=== PATIENT | male | born 1945 | race Caucasian/White ===

== ENCOUNTER 2017-10-14 13:32 | Emergency (ER) | payer MEDICARE, OTHER, SELFPAY ==
--- NOTE | 2017-10-14 | CT_ITS ---
CT cervical spine wo con INDICATION: ITS.REASON: NECK PAIN ON LEFT SIDE COMPARISON: None TECHNIQUE: Axial images are obtained without contrast. Sagittal and coronal reformatted images are reviewed as well. FINDINGS: There is normal alignment. No acute fracture or dislocation. C2-C3: Mild left-sided uncovertebral hypertrophy with mild foraminal narrowing. C3-C4: Left-sided uncovertebral hypertrophy with moderate to severe left-sided foraminal narrowing. C4-C5: Unremarkable. C5-C6: Prominent facet hypertrophic changes bilaterally with scattered lucent areas within the facets probably related to subcortical cystic changes. C6-C7: Mild degenerative disc disease. C7-T1: Unremarkable. There is coarse calcification in the lower pole the right lobe of the thyroid gland. Lung apices are clear. There is nonspecific small areas of decreased attenuation within the C2 vertebral body both right and left aspect at 3 to 4 mm and within the left lamina of C2 4 mm. Decreased focal density involves the left inferior facet of C4 at 5 mm. IMPRESSION: 1. Cervical spondylosis as described above. Described in detail above. Please see above for detail. 2. Moderate to severe left-sided foraminal narrowing at C3-C4. 3. Scattered areas of decreased attenuation involving the vertebra possibly all related to areas of osteopenia. Cannot exclude early lytic lesions. Consider outpatient bone scan for further evaluation.
[2017-10-14 13:33] VITALS: BP 178/98; PULSE 87; PULSE 98; RESP 16; TEMP 37; O2SAT 98; O2SAT 99; BMI 24.4; BMI 25.1
--- NOTE | 2017-10-14 14:36 | HMH.EDGENADL ---
ED Disposition Clinical Impression: Cervical arthritis with myelopathy Disposition: Home, Self-Care Condition on Discharge: Fair Instructions: DI for Acute Pain -- Adult Additional Instructions: Sleep on a flat, hard surface and alternate Ice and heat and use whichever helps the most. Follow up with PCP to get Physical Therapy and possibly a Bone Scan or an MRI to evaluate further Prescriptions: Diclofenac Potassium [Diclofenac 50mg Tab] 50 mg PO BID #60 tab Hydrocodone/Acetaminophen [Lorcet 5-325 mg Tablet] 1 each PO Q4H PRN 3 Days #18 tab PRN Reason: Severe Pain Methocarbamol [Robaxin 750mg Tab] 750 mg PO BID #60 tab Referrals: Titi Aquino MD [Primary Care Provider] - Time of Disposition: 16:34 - Critical Care Critical Care Time: No Attestation: On 10/14/17, the high probability of a clinically significant, sudden or life threatening deterioration of the following system(s) required my full and direct attention, intervention and personal management. The time I documented below is in addition to time spent performing reported procedures but includes the following listed in this critical care notation. Medical Decision Making - Medical Records Medical records reviewed: Yes: I reviewed the patient's medical records. Vital Signs: 10/14/17 13:33 Temperature 98.6 F Temperature Source Oral Pulse Rate [Right Brachial] 87 Respiratory Rate 16 Blood Pressure [Right Arm] 178/98 Blood Pressure Mean [Right Arm] 124 Blood Pressure Source [Right Arm] Automatic Cuff Blood Pressure Position [Right Arm] Sitting 02 Sat by Pulse Oximetry 98 Oxygen Delivery Method Room Air Orders (Tests/Meds): ED MEDICATIONS Discontinued Medications Generic Name Dose Route Start Last Admin Trade Name Freq PRN Reason Stop Dose Admin Morphine Sulfate 4 mg 10/14/17 16:19 Morphine 4mg/Ml Syringe IM 10/14/17 16:20 ONCE ONE Ondansetron HCl 4 mg 10/14/17 16:19 Zofran 4mg/2ml Vial IM 10/14/17 16:20 ONCE ONE ORDERS Category Date Time Status CT scan request [CT Request Scan] Stat Cat Scan 10/14/17 14:45 Taken - CT Data CT Scan: C-Spine Time Received: 16:[address] Reviewed: Yes: I have reviewed the patient's CT results, I discussed the CT results w/the radiologist, I have viewed the radiologist's interpretation Findings Narrative: Severe foraminal stenosis at C3-4 and ? osteopenia vs Lytic areas - Martir Inquiry Pt receiving controlled substance: Yes Martir was queried for this patient: Yes Reference #:: [id number] Risks and benefits of using a controlled substance: were discussed with pt by me General Adult HPI - General Stated complaint: stiff neck Mode of Arrival: Ambulatory Source of Information: Patient Limitations: No Limitations Description of Symptoms (Recalled from ER Triage Doc. by RN): Pt advises he woke up yesterday wirh a pain in his left shoulder and neck. Advises he feels like he may have slept on it wrong. Today he complains of pain in the neck - Related Data Previous Rx's Medication Instructions Recorded Diclofenac Potassium [Diclofenac 50 mg PO BID #60 tab 10/14/17 50mg Tab] Hydrocodone/Acetaminophen [Lorcet 1 each PO Q4H PRN 3 Days #18 tab 10/14/17 5-325 mg Tablet] Methocarbamol [Robaxin 750mg Tab] 750 mg PO BID #60 tab 10/14/17 Allergies Allergy/AdvReac Type Severity Reaction Status Date / Time No Known Allergies Allergy Verified 10/14/17 13:43 ROS Obtained: Yes All systems reviewed & no additional complaints Physical Exam - General General appearance: alert - Head Head exam: atraumatic - Respiratory Respiratory exam: Present: normal lung sounds bilaterally - Cardiovascular Cardiovascular exam: Present: regular rate, normal rhythm - Neurological Exam Neurological exam: Present: alert, oriented X3
--- NOTE | 2017-10-14 14:47 | ED_ITS ---
ED Disposition Clinical Impression: Cervical arthritis with myelopathy Disposition: Home, Self-Care Condition on Discharge: Fair Instructions: DI for Acute Pain -- Adult Additional Instructions: Sleep on a flat, hard surface and alternate Ice and heat and use whichever helps the most. Follow up with PCP to get Physical Therapy and possibly a Bone Scan or an MRI to evaluate further Prescriptions: Diclofenac Potassium [Diclofenac 50mg Tab] 50 mg PO BID #60 tab Hydrocodone/Acetaminophen [Lorcet 5-325 mg Tablet] 1 each PO Q4H PRN 3 Days #18 tab PRN Reason: Severe Pain Methocarbamol [Robaxin 750mg Tab] 750 mg PO BID #60 tab Referrals: Titi Aquino MD [Primary Care Provider] - Time of Disposition: 16:34 - Critical Care Critical Care Time: No Attestation: On 10/14/17, the high probability of a clinically significant, sudden or life threatening deterioration of the following system(s) required my full and direct attention, intervention and personal management. The time I documented below is in addition to time spent performing reported procedures but includes the following listed in this critical care notation. Medical Decision Making - Medical Records Medical records reviewed: Yes: I reviewed the patient's medical records. Vital Signs: 10/14/17 13:33 Temperature 98.6 F Temperature Source Oral Pulse Rate [Right Brachial] 87 Respiratory Rate 16 Blood Pressure [Right Arm] 178/98 Blood Pressure Mean [Right Arm] 124 Blood Pressure Source [Right Arm] Automatic Cuff Blood Pressure Position [Right Arm] Sitting 02 Sat by Pulse Oximetry 98 Oxygen Delivery Method Room Air Orders (Tests/Meds): ED MEDICATIONS Discontinued Medications Generic Name Dose Route Start Last Admin Trade Name Freq PRN Reason Stop Dose Admin Morphine Sulfate 4 mg 10/14/17 16:19 Morphine 4mg/Ml Syringe IM 10/14/17 16:20 ONCE ONE Ondansetron HCl 4 mg 10/14/17 16:19 Zofran 4mg/2ml Vial IM 10/14/17 16:20 ONCE ONE ORDERS Category Date Time Status CT scan request [CT Request Scan] Stat Cat Scan 10/14/17 14:45 Taken - CT Data CT Scan: C-Spine Time Received: 16:[address] Reviewed: Yes: I have reviewed the patient's CT results, I discussed the CT results w/the radiologist, I have viewed the radiologist's interpretation Findings Narrative: Severe foraminal stenosis at C3-4 and ? osteopenia vs Lytic areas - Martir Inquiry Pt receiving controlled substance: Yes Martir was queried for this patient: Yes Reference #:: [id number] Risks and benefits of using a controlled substance: were discussed with pt by me General Adult HPI - General Stated complaint: stiff neck Mode of Arrival: Ambulatory Source of Information: Patient Limitations: No Limitations Description of Symptoms (Recalled from ER Triage Doc. by RN): Pt advises he woke up yesterday wirh a pain in his left shoulder and neck. Advises he feels like he may have slept on it wrong. Today he complains of pain in the neck - Related Data Previous Rx's Medication Instructions Recorded Diclofenac Potassium [Diclofenac 50 mg PO BID #60 tab 10/14/17 50mg Tab] Hydrocodone/Acetaminophen [Lorcet 1 each PO Q4H PRN 3 Days #18 tab 10/14/17 5-325 mg Tablet] Methocarbamol [Robaxin 7
[2017-10-14 16:48] VITALS: BP 132/86; PULSE 78; RESP 18; TEMP 36.7; O2SAT 98
== END 2017-10-14 16:51 | disposition home or self-care (01) ==
LOC: ER 13:43 → UTC 13:44 → ER 14:32 → UTC 14:33 → ER 14:33
PROVIDERS: Emergency Provider General Practice; PCP Internal Medicine Adolescent Medicine
DX: M47.12 Other spondylosis with myelopathy, cervical region (principal)
CPT/HCPCS: 72125; 96372; 99283; J2405

== ENCOUNTER → 2017-10-15 11:23 | Outpatient (CLI) | payer MEDICARE, OTHER, SELFPAY ==
[2017-10-15 12:10] LABS: Basophils % 0.4 % (0.1-2.0); Eosinophils % 0.4 % (0.1-12.0); Hematocrit 38.9 % (42.0-52.0); Hemoglobin 13.2 g/dL (14.1-18.0); Lymphocytes # 1.7 K/mm3 (0.7-4.5); Lymphocytes % 17.8 K/mm3 (10-50); Mean Corpuscular HGB Conc 33.9 g/dL (31.8-35.4); Mean Corpuscular Hemoglobin 31.6 pg (27.0-31.2); Mean Corpuscular Volume 93.5 fl (80-94); Mean Platelet Volume 8.1 fl (7.4-10.4); Monocytes # 0.8 K/mm3 (0.1-1.0); Monocytes % 8.5 % (1.7-9.3); Platelet Count 195 K/mm3 (142-424); Red Blood Count 4.16 M/mm3 (4.60-6.20); Red Cell Distribution Width 12.5 % (11.5-17.5); White Blood Count 9.6 K/mm3 (4.8-10.8)
[2017-10-15 14:41] LABS: Alanine Aminotransferase 27 U/L (12-78); Albumin Level 4.1 gm/dL (3.4-5.0); Albumin/Globulin Ratio 1.4 (1.1-1.8); Alkaline Phosphatase 82 U/L (46-116); Anion Gap 12.5 mEq/L (5-15); Aspartate Amino Transferase 25 U/L (15-37); Bilirubin,Total 0.9 mg/dL (0.2-1.0); Blood Urea Nitrogen 16 mg/dL (7-18); Calcium 8.7 mg/dL (8.5-10.1); Carbon Dioxide 28 mmol/L (21.0-32.0); Chloride 103 mmol/L (98-107); Creatinine,Serum 1.07 mg/dL (0.70-1.30); Estimated Glomerular Filt Rate 69 ml/min (>60); GFR (African American) 83 ML/MIN (>60); Globulin 2.9 gm/dl (1.3-3.2); Glucose 96 mg/dL (74-106); Potassium 4.5 mmoL/L (3.5-5.1); Prostate Specific Ag Screen 1.8 ng/mL (0.0-4.0); Sodium 139 mmol/L (136-145)
[2017-10-16 18:32] LABS: Vitamin D 25 Hydroxy 45.8 ng/mL (30.0-100.0)
== END ==
PROVIDERS: PCP Internal Medicine Adolescent Medicine; Visit Provider Internal Medicine Adolescent Medicine
DX: M47.22 Other spondylosis with radiculopathy, cervical region (principal); M89.8X9 Other specified disorders of bone, unspecified site; Z12.5 Encounter for screening for malignant neoplasm of prostate
CPT/HCPCS: 36415; 80053; 82652; 85025; G0103

== ENCOUNTER → 2017-10-19 13:46 | Outpatient (CLI) | payer MEDICARE, OTHER, SELFPAY ==
--- NOTE | 2017-10-19 13:58 | XR_ITS ---
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 This is considered normal according to the World Health Organization criteria. Fracture risk is low. Recommend follow up exam October 09, 2019.. L1 L4 density has a T score of 0.9 which is normal IMPRESSION: Normal bone density
--- NOTE | 2017-10-19 14:16 | MR_ITS ---
MR cervical spine wo con HISTORY: Neck pain, RADICULOPATHY ITS.REASON: OSTEOARTHRITIS OF SPINE WITH RADICULOPATHY ORDERING PHYSICIAN: Titi Aquino MD PATIENT AGE: 71 years COMPARISON: CT scan of 10/14/2017 TECHNIQUE: Standard multiplanar multiecho sequences are performed without contrast. 3-D MIP and myelographic images are also rendered and reviewed FINDINGS: The craniocervical junction has an unremarkable appearance. C2-C3: Mild left foraminal narrowing from uncovertebral hypertrophy. C3-C4: Severe left-sided foraminal narrowing from uncovertebral hypertrophy. Left paracentral disc osteophyte complex causes left lateral recess narrowing abutting the left aspect of the cord anteriorly. C4-C5: Degenerative disc disease with facet and uncovertebral hypertrophy on the left causing moderate to severe foraminal narrowing. There is mild narrowing of the canal at 10 mm with very minimal flattening of the cord anteriorly C5-C6: Unremarkable. C6-C7: Degenerative disc disease with minimal bulging disc and mild narrowing of the canal C7-T1: Unremarkable. There were small lucent areas throughout the C-spine seen on the CT scan. These do not show signal alteration on MRI may be due to areas of osteopenia/osteoporosis. IMPRESSION: 1. Cervical spondylosis with bulging disc and uncovertebral and facet hypertrophy at multiple levels. Please see above for detailed description at each level. 2. Severe left-sided foraminal narrowing at C3-C4 from uncovertebral hypertrophy. Left paracentral disc osteophyte complex causes left lateral recess narrowing abutting the left aspect of the cord anteriorly. 3. Degenerative disc disease C4-C5 with facet and uncovertebral hypertrophy on the left causing moderate to severe foraminal narrowing. There is mild narrowing of the canal at 10 mm with very minimal flattening of the cord anteriorly 4. No extruded herniated disc evident
== END ==
PROVIDERS: PCP Internal Medicine Adolescent Medicine; Visit Provider Internal Medicine Adolescent Medicine
DX: M81.0 Age-related osteoporosis without current pathological fracture (principal); M47.22 Other spondylosis with radiculopathy, cervical region; Z13.820 Encounter for screening for osteoporosis
CPT/HCPCS: 72141; 76376; 77080

== ENCOUNTER → 2018-04-22 11:07 | Outpatient (REF) | payer MEDICARE, OTHER, SELFPAY ==
[2018-04-29 17:25] LABS: Calprotectin, Fecal 37 ug/g (0-120)
== END ==
LOC: LAB 11:07
PROVIDERS: Visit Provider Physician Assistant
DX: K51.90 Ulcerative colitis, unspecified, without complications (principal)
CPT/HCPCS: 83993

== ENCOUNTER → 2019-02-27 11:16 | Outpatient (CLI) | payer MEDICARE, BC, SELFPAY ==
[2019-02-27 13:31] LABS: Alanine Aminotransferase 31 U/L (12-78); Albumin Level 4.2 gm/dL (3.4-5.0); Albumin/Globulin Ratio 1.5 (1.1-1.8); Alkaline Phosphatase 80 U/L (46-116); Anion Gap 14.6 mEq/L (5-15); Aspartate Amino Transferase 25 U/L (15-37); Bilirubin,Total 0.8 mg/dL (0.2-1.0); Blood Urea Nitrogen 12 mg/dL (7-18); Carbon Dioxide 29 mmol/L (21.0-32.0); Chloride 104 mmol/L (98-107); Chol/HDL Ratio 2.5 (1-3.5); Cholesterol 164 mg/dL (140-200); Creatinine,Serum 0.98 mg/dL (0.70-1.30); Estimated Glomerular Filt Rate 75 ml/min (>60); GFR (African American) 91 ML/MIN (>60); Globulin 2.8 gm/dl (1.3-3.2); Glucose 86 mg/dL (74-106); HDL Cholesterol 66 mg/dL (27-67); LDL Cholesterol 67 mg/dL (0-130); Potassium 4.6 mmoL/L (3.5-5.1); Sodium 143 mmol/L (136-145); Triglycerides 154 mg/dL (30-200); VLDL Cholesterol 31 mg/dL (0-40)
== END ==
PROVIDERS: Visit Provider Nurse Practitioner Family
DX: I10 Essential (primary) hypertension (principal); E78.2 Mixed hyperlipidemia
CPT/HCPCS: 36415; 80053; 80061

== ENCOUNTER → 2019-09-28 13:32 | Outpatient (CLI) | payer MEDICARE, BC, SELFPAY ==
[2019-10-01 17:59] LABS: Calprotectin, Fecal 16 ug/g (0-120)
== END ==
PROVIDERS: Visit Provider Physician Assistant
DX: K51.90 Ulcerative colitis, unspecified, without complications (principal)
CPT/HCPCS: 36415; 83993

== ENCOUNTER → 2021-01-24 08:13 | Outpatient (CLI) | payer MEDICARE, BC, SELFPAY ==
[2021-01-24 08:59] LABS: Basophils % 0.6 % (0.1-2.0); Eosinophils # 0.2 K/mm3 (0.0-0.4); Eosinophils % 2.7 % (0.1-12.0); Hematocrit 38.6 % (42.0-52.0); Hemoglobin 13.4 g/dL (14.1-18.0); Lymphocytes % 31.5 % (10-50); Mean Corpuscular HGB Conc 34.7 g/dL (31.8-35.4); Mean Corpuscular Hemoglobin 32.5 pg (27.0-31.2); Mean Corpuscular Volume 93.7 fl (80-94); Mean Platelet Volume 8.4 fl (7.4-10.4); Monocytes # 0.5 K/mm3 (0.1-1.0); Monocytes % 8.4 % (1.7-9.3); Neutrophils # 3.7 K/mm3 (1.8-7.8); Neutrophils % 56.8 % (37.0-80.0); Platelet Count 229 K/mm3 (142-424); Red Blood Count 4.12 M/mm3 (4.60-6.20); Red Cell Distribution Width 13.1 % (11.5-17.5); White Blood Count 6.5 K/mm3 (4.8-10.8)
[2021-01-24 09:34] LABS: Chloride 103 mmol/L (98-107); Potassium 3.9 mmoL/L (3.5-5.1); Sodium 138 mmol/L (136-145)
[2021-01-24 09:36] LABS: Alanine Aminotransferase 30 U/L (12-78); Aspartate Amino Transferase 52 U/L (17-59); Blood Urea Nitrogen 15 mg/dl (9-20); Estimated Glomerular Filt Rate 73 ml/min (>60); GFR (African American) 89 ML/MIN (>60)
[2021-01-24 09:37] LABS: Albumin Level 4.6 g/dl (3.5-5.0); Albumin/Globulin Ratio 2.1 (1.1-1.8); Alkaline Phosphatase 71 U/L (38-126); Anion Gap 11.9 mEq/L (5-15); Bilirubin,Total 0.8 mg/dl (0.2-1.3); Calcium 9.1 mg/dl (8.4-10.2); Carbon Dioxide 27 mmol/L (22.0-30.0); Cholesterol 153 mg/dl (140-200); Globulin 2.2 g/dL (1.3-3.2); Glucose 107 mg/dl (74-100); Total Protein,Serum 6.8 g/dl (6.3-8.2); Triglycerides 94 mg/dl (30-150); VLDL Cholesterol 19 mg/dL (0-40)
[2021-01-24 09:38] LABS: Chol/HDL Ratio 2.5 (1-3.5); HDL Cholesterol 61 mg/dl (40-60)
[2021-01-24 09:49] LABS: Direct LDL Cholesterol 62.93 mg/dL (100-129)
== END ==
PROVIDERS: Visit Provider Nurse Practitioner Family
DX: I10 Essential (primary) hypertension (principal); E78.2 Mixed hyperlipidemia; K51.20 Ulcerative (chronic) proctitis without complications
CPT/HCPCS: 36415; 80053; 80061; 85025

== ENCOUNTER 2021-04-24 07:18 | Emergency (ER) | payer MEDICARE, BC, SELFPAY ==
[2021-04-24 07:19] VITALS: BP 174/81; PULSE 69; RESP 16; TEMP 36.4; O2SAT 97; BMI 25.8
--- NOTE | 2021-04-24 07:36 | CT_ITS ---
PROCEDURE: CT ABDOMEN PELVIS W CON CLINICAL INDICATION: LEFT FLANK PAIN COMPARISON: No exams were available for comparison TECHNIQUE: IV Contrast: 75ML Isovue 370 Oral Contrast None Axial images obtained with sagittal and coronal reformats. All CT scans at the facility use one or more dose reduction, viz: automated exposure control, ma/kV adjustment per patient size (including targeted exams where dose is matched to indication, i.e. head), or iterative reconstruction technique. FINDINGS: LOWER THORAX: Atelectatic changes are present in the lung bases. Coronary artery calcifications are noted. ABDOMEN & PELVIS: Numerous lobulated hypodensities are present within the liver. These do not demonstrate contrast enhancement measuring near water density consistent with multiple hepatic cysts the largest lesion is in the left hepatic lobe measuring 5 cm. Gallstones are present. The spleen, adrenal glands, and pancreas have an unremarkable appearance. There is a 6 mm stone in the upper pole of the right kidney. There is a small right renal cyst at 1.8 cm. There is mild left hydronephrosis and hydroureter secondary to a 3 mm stone at the left ureterovesical junction. There is minimal stranding of the left periureteral fat. Small hiatal hernia. No intestinal obstruction or free air. Unremarkable appearing appendix. No evidence of diverticulitis. There is mild thickening of the urinary bladder wall. Degenerative changes lumbar spine and hips. There are small bilateral inguinal hernias containing fat right larger than left. IMPRESSION: 1. 3 mm left ureterovesical junction stone causing mild left-sided hydronephrosis. Minimal stranding of the periureteral fat on the left which could be due to underlying inflammation or infection 2. There is mild urinary bladder wall thickening which may be seen with incomplete distension, chronic outflow obstruction, or cystitis. 3. Right nephrolithiasis 4. Cholelithiasis 5. Multiple hepatic lesions compatible with cysts. Six-month follow-up may confirm stability. Dictated by: Perry Aparicio MD 04/24/2021 08:41 Perry Aparicio MD in [place] 04/24/2021 08:41
[2021-04-24 07:45] LABS: Basophils # 0.1 K/mm3 (0-0.2); Basophils % 0.9 % (0.1-2.0); Eosinophils # 0.2 K/mm3 (0.0-0.4); Eosinophils % 2.2 % (0.1-12.0); Hematocrit 39.3 % (42.0-52.0); Hemoglobin 13.5 g/dL (14.1-18.0); Lymphocytes # 2.3 K/mm3 (0.7-4.5); Lymphocytes % 30.2 % (10-50); Mean Corpuscular HGB Conc 34.5 g/dL (31.8-35.4); Mean Corpuscular Hemoglobin 32.1 pg (27.0-31.2); Mean Platelet Volume 8.4 fl (7.4-10.4); Monocytes # 0.5 K/mm3 (0.1-1.0); Monocytes % 6.2 % (1.7-9.3); Neutrophils # 4.6 K/mm3 (1.8-7.8); Neutrophils % 60.6 % (37.0-80.0); Platelet Count 210 K/mm3 (142-424); Red Blood Count 4.22 M/mm3 (4.60-6.20); Red Cell Distribution Width 13.6 % (11.5-17.5); White Blood Count 7.7 K/mm3 (4.8-10.8)
[2021-04-24 07:46] LABS: Chloride 105 mmol/L (98-107); Potassium 3.5 mmoL/L (3.5-5.1); Sodium 142 mmol/L (136-145)
[2021-04-24 07:48] LABS: Amylase 86 U/L (30-110); Blood Urea Nitrogen 15 mg/dl (9-20); Creatinine Clearance Estimated 63 mL/min (50-200); Estimated Glomerular Filt Rate 59 ml/min (>60); GFR (African American) 72 ML/MIN (>60)
[2021-04-24 07:49] LABS: Alanine Aminotransferase 24 U/L (12-78); Albumin Level 4.8 g/dl (3.5-5.0); Albumin/Globulin Ratio 1.7 (1.1-1.8); Alkaline Phosphatase 77 U/L (38-126); Anion Gap 14.5 mEq/L (5-15); Aspartate Amino Transferase 37 U/L (17-59); Bilirubin,Total 0.7 mg/dl (0.2-1.3); Calcium 9.3 mg/dl (8.4-10.2); Carbon Dioxide 26 mmol/L (22.0-30.0); Globulin 2.8 g/dL (1.3-3.2); Glucose 141 mg/dl (74-100); Lipase 147 U/L (23-300); Total Protein,Serum 7.6 g/dl (6.3-8.2)
[2021-04-24 07:55] LABS: C-Reactive Protein 1.5 mg/L (0-4)
[2021-04-24 08:00] VITALS: BP 158/86; PULSE 73; RESP 18; O2SAT 96
--- NOTE | 2021-04-24 08:06 | PC.NURSE ---
pt to CT
[2021-04-24 08:10] LABS: Procalcitonin 0.083 ng/mL (0.0-2.0)
[2021-04-24 08:31] VITALS: BP 176/84; PULSE 70; O2SAT 97
[2021-04-24 09:09] LABS: Microscopic, Urine URINE MICROSCOPIC (MICROSCOPIC)
[2021-04-24 09:11] LABS: Appearance,Urine CLEAR (Clear); Bilirubin,Urine Negative (Negative); Blood, Urine 3+ (Negative); Color,Urine DK YELLOW (Yellow); Glucose,Urine (UA) Negative (Negative); Ketones,Urine Negative (Negative); Leukocyte Esterase,Urine Negative (Negative); Nitrate,Urine Negative (Negative); Protein,Urine TRACE (Negative); Specific Gravity, Urine 1.025 (1.005-1.030); Urobilinogen,Urine 0.2 EU/dl (0.2)
[2021-04-24 09:15] VITALS: BP 160/83; PULSE 69; O2SAT 95
--- NOTE | 2021-04-24 09:19 | HMH.EDGENADL ---
ED Disposition Clinical Impression: Ureterolithiasis Disposition: Home, Self-Care Condition on Discharge: Good Instructions: DI for Acute Abdominal Pain Additional Instructions: Medications as directed. Follow-up with Dr. Limon when able. Strain your urine. Return the emergency department for fever, uncontrolled pain. Prescriptions: Ketorolac Tromethamine [Toradol 10mg tablet] 10 mg PO Q6HP PRN #16 tab MDD 40mg/day PRN Reason: Moderate Pain Transmission Status: Pending to [facility] Tamsulosin HCl [Flomax 0.4mg capsule] 0.4 mg PO HS #30 cap Transmission Status: Pending to [facility] Hydrocodone/Acetaminophen [Hydrocodone-Acetamin 5-325 mg] 1 tab PO TID #12 tab Transmission Status: Sent to [facility] Ondansetron [Zofran 4mg ODT] 4 mg PO TIDP PRN #10 tab PRN Reason: Nausea Transmission Status: Pending to [facility] Referrals: Vikki Hummel APRN [Primary Care Provider] - 3 days Emery Limon MD [Staff Physician] - (call for appointment) Time of Disposition: 09:27 - Critical Care Critical Care Time: No Attestation: On 04/24/21, the high probability of a clinically significant, sudden or life threatening deterioration of the following system(s) required my full and direct attention, intervention and personal management. The time I documented below is in addition to time spent performing reported procedures but includes the following listed in this critical care notation. Medical Decision Making - Martir Inquiry Pt receiving controlled substance: No Vital Signs: 04/24/21 07:19 04/24/21 08:00 Temperature 97.6 F Temperature Source Oral Pulse Rate 73 Pulse Rate [Right] 69 Respiratory Rate 16 18 Blood Pressure 158/86 H Blood Pressure [Right Arm] 174/81 H Blood Pressure Mean 110 Blood Pressure Mean [Right Arm] 112 02 Sat by Pulse Oximetry 97 96 Oxygen Delivery Method Room Air Room Air - Lab Data Lab results reviewed: Yes: I reviewed the patient's lab results. Lab Results 04/24/21 07:35: WBC 7.7, RBC 4.22 L, Hgb 13.5 L, Hct 39.3 L, MCV 93.0, MCH 32.1 H, MCHC 34.5, RDW 13.6, Plt Count 210, MPV 8.4, Neut % (Auto) 60.6, Lymph % (Auto) 30.2, [place] % (Auto) 6.2, Eos % (Auto) 2.2, Baso % (Auto) 0.9, Neut # (Auto) 4.6, Lymph # (Auto) 2.3, [place] # (Auto) 0.5, Eos # (Auto) 0.2, Baso # (Auto) 0.1 04/24/21 07:35: Sodium 142, Potassium 3.5, Chloride 105, Carbon Dioxide 26, Anion Gap 14.5, BUN 15, Creatinine 1.20, Estimated Creat Clear 63, Estimated GFR 59, Est GFR ( Amer) 72, Glucose 141 H, Calcium 9.3, Total Bilirubin 0.7, AST 37, ALT 24, Alkaline Phosphatase 77, C-Reactive Protein 1.5, Total Protein 7.6, Albumin 4.8, Globulin 2.8, Albumin/Globulin Ratio 1.7, Amylase 86, Lipase 147, Procalcitonin 0.083 04/24/21 09:05: Urine Color Dk yellow, Urine Appearance Clear, Urine pH 5.0, Ur Specific [place] 1.025, Urine Protein Trace, Urine Glucose (UA) Negative, Urine Ketones Negative, Urine Blood 3+, Urine Nitrate Negative, Urine Bilirubin Negative, Urine Urobilinogen 0.2, Ur Leukocyte Esterase Negative, Urine RBC 5-10, Urine WBC 3-5, Ur Squamous Epith Cells 3-5, Urine Bacteria None Result diagrams: 04/24/21 07:35 04/24/21 07:35 Orders (Tests/Meds): ED MEDICATIONS Discontinued Medications Generic Name Dose Route Start Last Admin Trade Name Freq PRN Reason Stop Dose Admin Sodium Chloride 1,000 mls @ 999 mls/hr 04/24/21 07:45 04/24/21 07:51 Sod Chlor 0.9% 1000ml Bag IV 04/24/21 08:45 999 mls/hr .Q1H1M RAMONA Administration Iopamidol 75 ml 04/24/21 08:13 04/24/21 08:14 Iopamidol-370 (76%);100ml Bottle IV 04/24/21 08:14 75 ml ONCE ONE Administration Ketorolac Tromethamine 30 mg 08/05/21 07:36 04/24/21 07:51 Ketorolac 30mg/Ml Vial IV 04/24/21 07:37 Not Given ONCE ONE Ketorolac Tromethamine 15 mg 04/24/21 07:42 04/24/21 07:50 Ketorolac 30mg/Ml Vial IV 04/24/21 07:43 15 mg ONCE ONE Administration Onda
[2021-04-24 09:40] VITALS: BP 160/78; PULSE 89; RESP 16; TEMP 36.6; O2SAT 98
== END 2021-04-24 09:42 | disposition home or self-care (01) ==
PROVIDERS: Emergency Provider Emergency Medicine; PCP Nurse Practitioner Family
DX: N20.1 Calculus of ureter (principal)
CPT/HCPCS: 74177; 80053; 81001; 82150; 83690; 84145; 85025; 86140; 96365; 96375; 96376; 99283; J2405; Q9967

== ENCOUNTER → 2021-06-04 13:53 | Outpatient (CLI) | payer MEDICARE, BC, SELFPAY ==
--- NOTE | 2021-06-04 13:59 | XR_ITS ---
PROCEDURE: XR KUB CLINICAL INDICATION: LT NEPHROLITHIASIS COMPARISON: CT CT ABDOMEN PELVIS W CON from 04/24/2021 FINDINGS: Nonspecific bowel gas pattern. Degenerative changes lumbar spine. No definite ureteral calculus or renal calculus. Phleboliths are present in the pelvis on the right. Scarring is present in the right lung base medially. IMPRESSION: No acute findings. Dictated by: Perry Aparicio MD 06/04/2021 16:39 Perry Aparicio MD in [place] 06/04/2021 16:39
== END ==
PROVIDERS: PCP Nurse Practitioner Family; Visit Provider Nurse Practitioner Family
DX: N20.0 Calculus of kidney (principal)
CPT/HCPCS: 74018

== ENCOUNTER → 2021-06-05 09:11 | Outpatient (CLI) | payer MEDICARE, BC, SELFPAY ==
[2021-06-05 09:39] LABS: Basophils # 0.1 K/mm3 (0-0.2); Basophils % 1.1 % (0.1-2.0); Eosinophils # 0.2 K/mm3 (0.0-0.4); Eosinophils % 3.6 % (0.1-12.0); Hematocrit 40.8 % (42.0-52.0); Hemoglobin 13.8 g/dL (14.1-18.0); Lymphocytes % 33.6 % (10-50); Mean Corpuscular HGB Conc 33.8 g/dL (31.8-35.4); Mean Corpuscular Hemoglobin 32.5 pg (27.0-31.2); Mean Corpuscular Volume 96.2 fl (80-94); Mean Platelet Volume 8.1 fl (7.4-10.4); Monocytes # 0.4 K/mm3 (0.1-1.0); Monocytes % 6.6 % (1.7-9.3); Neutrophils # 3.2 K/mm3 (1.8-7.8); Neutrophils % 55.2 % (37.0-80.0); Platelet Count 252 K/mm3 (142-424); Red Blood Count 4.24 M/mm3 (4.60-6.20); Red Cell Distribution Width 12.9 % (11.5-17.5); White Blood Count 5.9 K/mm3 (4.8-10.8)
[2021-06-05 10:36] LABS: Alanine Aminotransferase 22 U/L (12-78); Albumin Level 4.4 g/dl (3.5-5.0); Albumin/Globulin Ratio 1.8 (1.1-1.8); Alkaline Phosphatase 67 U/L (38-126); Anion Gap 12.3 mEq/L (5-15); Aspartate Amino Transferase 32 U/L (17-59); Bilirubin,Total 0.6 mg/dl (0.2-1.3); Blood Urea Nitrogen 17 mg/dl (9-20); Calcium 9.2 mg/dl (8.4-10.2); Carbon Dioxide 27 mmol/L (22.0-30.0); Chloride 104 mmol/L (98-107); Estimated Glomerular Filt Rate 73 ml/min (>60); GFR (African American) 89 ML/MIN (>60); Globulin 2.5 g/dL (1.3-3.2); Glucose 103 mg/dl (74-100); Potassium 4.3 mmoL/L (3.5-5.1); Sodium 139 mmol/L (136-145); Total Protein,Serum 6.9 g/dl (6.3-8.2)
[2021-06-05 10:51] LABS: Hemoglobin A1C 4.9 % (4.0-6.0)
== END ==
PROVIDERS: Visit Provider Nurse Practitioner Family
DX: R73.9 Hyperglycemia, unspecified (principal); K51.20 Ulcerative (chronic) proctitis without complications
CPT/HCPCS: 36415; 80053; 83036; 85025

== ENCOUNTER 2022-06-23 20:15 | Emergency (ER) | payer MEDICARE, BC, SELFPAY ==
[2022-06-23 20:17] VITALS: BP 164/76; PULSE 91; RESP 16; TEMP 36.7; O2SAT 96; BMI 30.1
[2022-06-23 21:00] VITALS: BP 118/71; PULSE 80; RESP 18; O2SAT 96
--- NOTE | 2022-06-23 21:07 | HMH.EDWNDL ---
Discharge Plan Disposition Patient Disposition: Home, Self-Care Chief Complaint: Wound/Laceration Prescriptions Prescriptions: No Action sulfasalazine 500 mg tablet 0.5 g PO DAILY Rx Instructions: give with food (meal/snack) metoprolol succinate 50 mg tablet extended release 24 hr 50 mg PO BID lisinopril-hydrochlorothiazide 20-12.5 mg tablet 1 tab PO DAILY atorvastatin 20 mg tablet 20 mg PO DAILY hydrocodone-acetaminophen 1 EACH tablet 1 each PO Q4H PRN (Reason: Severe Pain) 3 Days Qty: 18 0RF diclofenac potassium 50 MG tablet 50 mg PO BID Qty: 60 0RF methocarbamol 750 MG tablet 750 mg PO BID Qty: 60 0RF hydrocodone-acetaminophen 1 EACH tablet 1 tab PO TID Qty: 12 0RF ketorolac 10 MG tablet 10 mg PO Q6HP MDD 40mg/day PRN (Reason: Moderate Pain) Qty: 16 0RF Rx Instructions: start at dinner time today tamsulosin 0.4 MG capsule 0.4 mg PO HS Qty: 30 0RF ondansetron 4 MG tablet,disintegrating 4 mg PO TIDP PRN (Reason: Nausea) Qty: 10 0RF Referrals Follow up/Referrals: Titi Aquino MD [Primary Care Provider] - See instructions Clinical Impressions Clinical Impression: Laceration of ear Instructions Patient Instructions: DI for Laceration Repair Discharge ED Provider: Arnoldo Pinto Wound/Laceration HPI General Chief Complaint: Wound/Laceration Stated Complaint: AO10/04@1700@home fell hit head Time Seen by Provider: 06/23/22 21:07 Mode of Arrival: Ambulatory Source of Information: Patient and Medical Record Limitations: No Limitations Description of Symptoms (Recalled from ER Triage Doc. by RN): Pt reports tripping while walking through the doorway to the house and hitting the left side of his head on a weight bench. Pt has small LAC to left ear. pt denies neck pian, back pain, visual disturbances, or N/V. History of Present Illness HPI narrative: trip and fell with lt ear helix lac - no other c/o Onset (ago): hour(s) Location: other (ear) Place: home Context: fall Associated symptoms: none Related Data Home Medications Medication Instructions Recorded Confirmed atorvastatin 20 mg tablet 20 mg PO DAILY 11/18/21 11/18/21 lisinopril 20 1 tab PO DAILY 11/18/21 11/18/21 mg-hydrochlorothiazide 12.5 mg tablet metoprolol succinate 50 mg 50 mg PO BID 11/18/21 11/18/21 tablet,extended release 24 hr sulfasalazine 500 mg tablet 0.5 g PO DAILY 11/18/21 11/18/21 Previous Rx's Medication Instructions Recorded diclofenac potassium 50 mg tablet 50 mg PO BID #60 tabs 10/14/17 hydrocodone 5 mg-acetaminophen 325 1 each PO Q4H PRN Severe Pain 3 10/14/17 mg tablet days #18 tabs methocarbamol 750 mg tablet 750 mg PO BID #60 tabs 10/14/17 hydrocodone 5 mg-acetaminophen 325 1 tab PO TID #12 tabs 04/24/21 mg tablet ketorolac 10 mg tablet 10 mg PO Q6HP PRN Moderate Pain 04/24/21 #16 tabs ondansetron 4 mg disintegrating 4 mg PO TIDP PRN Nausea #10 tabs 04/24/21 tablet tamsulosin 0.4 mg capsule 0.4 mg PO HS #30 caps 04/24/21 Allergies Allergy/AdvReac Type Severity Reaction Status Date / Time No Known Allergies Allergy Verified 11/18/21 10:58 PFS PFS Social History Smoking Status: Never smoker alcohol intake: never substance use type: denies use current occupational status: retired Travel in the last 8 weeks: None housing: house ROS Obtained: Yes All systems reviewed & no additional complaints except as documented Physical Exam General General appearance: alert Head Head exam: normocephalic Eye Eye exam: Present PERRL and EOMI ENT ENT exam: Present mucous membranes moist and other (1 cm flap lac lt ear helix ) Neck Neck exam: Present trachea midline Respiratory Respiratory exam: Absent respiratory distress Cardiovascular Cardiovascular exam: Present regular rate Abdominal Exam Abdominal exam: Present soft Extremities Exam Extremities exam: Present full ROM Neurological Exam
[2022-06-23 21:30] VITALS: BP 122/73; PULSE 77; RESP 18; O2SAT 95
[2022-06-23 21:35] VITALS: BP 116/73; PULSE 77; RESP 16; TEMP 36.6; O2SAT 95
== END 2022-06-23 21:40 | disposition home or self-care (01) ==
PROVIDERS: Emergency Provider Emergency Medicine; PCP Internal Medicine Adolescent Medicine
DX: S01.312A Laceration without foreign body of left ear, initial encounter (principal); W01.190A Fall on same level from slipping, tripping and stumbling with subsequent striking against furniture, initial encounter; Y92.009 Unspecified place in unspecified non-institutional (private) residence as the place of occurrence of the external cause
CPT/HCPCS: 12011; 99283

== ENCOUNTER 2022-07-03 08:57 | Emergency (ER) | payer MEDICARE, BC, SELFPAY ==
[2022-07-03 09:26] VITALS: BP 131/69; PULSE 81; RESP 16; TEMP 36.6; O2SAT 97; BMI 28.8
[2022-07-03 09:27] VITALS: BP 131/69; PULSE 81; RESP 16; TEMP 36.6
== END 2022-07-03 09:29 | disposition home or self-care (01) ==
PROVIDERS: Emergency Provider Nurse Practitioner; PCP Internal Medicine Adolescent Medicine
DX: Z48.02 Encounter for removal of sutures (principal)

== ENCOUNTER → 2022-10-14 14:49 | Outpatient (CLI) | payer MEDICARE, BC, SELFPAY ==
[2022-10-17 23:49] LABS: Calprotectin, Fecal <16 ug/g (0-120)
== END ==
PROVIDERS: Physician Assistant; PCP Internal Medicine Adolescent Medicine
DX: K51.90 Ulcerative colitis, unspecified, without complications (principal)
CPT/HCPCS: 83993

== ENCOUNTER → 2023-06-07 12:46 | Outpatient (CLI) | payer MEDICARE, BC, SELFPAY ==
--- NOTE | 2023-06-07 12:50 | CA_ITS ---
FINAL REPORT TECHNIQUE: Real-time imaging was performed of the extracranial carotid arteries in transverse and longitudinal planes, with color duplex evaluation of blood flow velocity. Spectral analysis was performed. The cervical vertebral arteries were also examined. CLINICAL HISTORY: PRE SYNCOPE,DIZZINESS COMPARISON: None FINDINGS: NASCET technique is utilized for stenosis evaluation. Right carotid system (centimeters/second): CCA: 88 ICA: 116 ECA: 97 Vertebral artery: Antegrade ICA/CCA ratio: 1.37 Mild plaque is identified at the bifurcation. Left carotid system (centimeters/second): CCA: 130 ICA: 120 ECA: 120 Vertebral artery: Antegrade ICA/CCA ratio: 1.1 Mild plaque is identified at the bifurcation. IMPRESSION: 0-29% right ICA stenosis. 0-29% left ICA stenosis. Antegrade flow bilateral vertebral arteries. Reviewed, Interpreted and Dictated by Ney Raymundo MD Transcribed by Imelda Gutierrez Authenticated and [facility]
== END ==
PROVIDERS: PCP Internal Medicine Adolescent Medicine; Visit Provider Nurse Practitioner Family
DX: R55 Syncope and collapse (principal)
CPT/HCPCS: 93880

== ENCOUNTER → 2023-06-18 13:12 | Outpatient (CLI) | payer MEDICARE, BC, SELFPAY ==
--- NOTE | 2023-06-18 | CA_ITS ---
APPROVED REPORT EXAM: Comprehensive 2D, Doppler, and color-flow Echocardiogram Senior Mechanical Technician: Yvette Patrick, RT(R) Ht: 5 ft 10 in Wt: 210lbs BSA: 2.13 BP: 135/81 mmHg Indications: Pre syncopal episode x 2, edema, HTN, Hyperlipidemia, hx of asthma, WADE with exercise, fatigue 2D Dimensions LVOT 2.21 cm (M/F) 1.5-2.5 LVEF ([place]'s) 60.10 % LV Volume 87.00 mL LA Volume 26.10 mL LA Volume Index 12.00 mL/m2 (M/F) 16-34 M-Mode Dimensions RVDd 2.53 cm (0.9-2.6) LA Diam 3.51 cm (1.9-4.0) LVDd 4.90 cm (3.5-5.7) Ao Diam 2.83 cm (2.0-3.7) LVDs 3.38 cm (3.5-5.7) IVSd 0.76 cm (0.6-1.1) PWd 0.80 cm (0.6-1.1) EF (Teich) 58.50% FS 31.00% EDV (Teich) 112.80 mL TAPSE 1.58 (<1.7) ESV (Teich) 46.80 mL LV Diastology E Decel Time 303.00 (160-240 msec) E/A Ratio 0.71 MED E' 5.70 (< 7 cm/sec) E'/MED E' Ratio 12.95 (>14) LAT E' 5.30 (<10 cm/sec) E/LAT E' Ratio 13.92 (>14) Aortic Valve LVOT Max 131.00 (70-110 cm/s) LVOT VTI 27.14 cm AoV Peak Homar. 140.00 (50-130 cm/s) AO Peak GR. 7.90 mmHg AO Mean GR. 3.90 (<5 mmHg) AO VTI 24.16 (18-25 cm) MANPREET (VTI) 4.31 (2.5-4.5 cm2) Mitral Valve MV E Max Homar. 74.00 (40-130 cm/s) MV A Velocity 104.00 (40-130 cm/s) E/A Ratio 0.71 MV Decel. Time 303.00 (160-240 ms) MV PHT 89.00 ms Left Ventricle The left ventricle is normal size. The left ventricular systolic function is normal. The left ventricular ejection fraction is within the normal range. There is increased LV wall thickness. There is normal LV segmental wall motion. The left ventricular diastolic function is normal. LVEF is 55%. Right Ventricle The right ventricle is normal size. The right ventricular systolic function is normal. Atria The left atrium size is normal. The right atrium size is normal. There is no Doppler evidence of interatrial shunt. Aortic Valve The aortic valve opens well. There is no aortic valvular stenosis. No aortic regurgitation is present. Mitral Valve The mitral valve is normal in structure. No evidence of mitral valve stenosis. Trace mitral regurgitation. Tricuspid Valve The tricuspid valve leaflets are thin and pliable. Trace tricuspid regurgitation. There is insufficient TR jet to estimate RVSP. Pulmonic Valve The pulmonary valve is normal in structure. Trace pulmonic regurgitation. Great Vessels The aortic root is normal in size. The ascending aorta is normal in size. IVC is normal in size and collapses >50% with inspiration. Pericardium There is no pericardial effusion. A 2.6 cm x 2.0 hypoechoic density is incidentally noted in the liver, likely representing hepatic cyst. Other Information Study Quality: Fair Conclusion Biventricular systolic function. No significant valvular stenosis or regurgitation. A 2.6 cm x 2.0 hypoechoic density is incidentally noted in the liver, likely representing hepatic cyst. Electronically signed by : Nicolasa Duval MD 06/20/2023 20:38:37
== END ==
PROVIDERS: PCP Internal Medicine Adolescent Medicine; Visit Provider Nurse Practitioner Family
DX: R55 Syncope and collapse (principal)
CPT/HCPCS: 93306

== ENCOUNTER → 2023-07-12 08:12 | Outpatient (CLI) | payer MEDICARE, BC, SELFPAY ==
--- NOTE | 2023-07-12 08:17 | US_ITS ---
FINAL REPORT CLINICAL HISTORY: HEPATIC CYSTS COMPARISON: None FINDINGS: Sonographic images of the right upper quadrant were obtained. The pancreas is partially obscured. There are multiple masses in the liver, up to 4.6 cm in diameter, consistent with cysts and septated cysts. There are dependent echogenic foci present in the gallbladder, would favor gallstones, however shadowing is not well seen on this examination. There is no evidence of biliary ductal dilatation.The common duct measures 2.4 mm. There is a 1.8 cm right renal cyst present. IMPRESSION: There are multiple hypoechoic masses in the liver measuring up to 4.6 cm in diameter, consistent in appearance with cysts and septated cysts. Dependent echogenic foci are present in the gallbladder, favor gallstones, however shadowing is not well seen on this examination. No biliary ductal dilatation is seen. 1.8 cm right renal cyst. Reviewed, Interpreted and Dictated by Doug Del Toro III, MD Transcribed by Imelda Gutierrez Authenticated and [facility]
== END ==
PROVIDERS: PCP Internal Medicine Adolescent Medicine; Visit Provider Nurse Practitioner Family
DX: K76.89 Other specified diseases of liver (principal)
CPT/HCPCS: 76705

== ENCOUNTER 2024-11-28 12:14 | Outpatient (CLI) | payer MEDICARE, BC, SELFPAY ==
[2024-11-30 08:48] LABS: Calprotectin, Fecal 13 ug/g (0-120)
== END 2024-11-28 23:59 | disposition home or self-care (01) ==
LOC: LAB 12:15
PROVIDERS: PCP Internal Medicine Adolescent Medicine; Visit Provider Physician Assistant
DX: K51.90 Ulcerative colitis, unspecified, without complications (principal)
CPT/HCPCS: 83993